=== PATIENT | female | born 1980 | race Caucasian/White ===

== ENCOUNTER 2024-07-07 10:34 | Observation (INO) | payer BC ==
--- NOTE | 2024-07-07 11:01 | ED ---
Nausea/Vomiting/Diarrhea HPI - General Chief complaint: Nausea/Vomiting/Diarrhea Stated complaint: Dizziness, Nausea Time Seen by Provider: 07/07/24 10:44 Source: patient Limitations: no limitations - History of Present Illness Initial comments: 43-year-old female presenting to the ER for evaluation of dizziness. Patient states on Thursday evening she may have consumed undercooked chicken. That night she started to experience nausea, vomiting and diarrhea. She denies any hematochezia, melena or hematic emesis. She states for the 4 days following she has been in bed as she has been feeling extremely dizzy. She states it feels as if the room is spinning which causes her to vomit. She does state this is worse with head motions. She denies any palpitations, chest discomfort, shortness of breath or abdominal pain. Patient denies a history of vertigo. Denies fevers or chills. Patient has tried taking hnxw-vpo-uycrzna DayQuil but has since stopped taking this medication as she has not been eating as well. Patient denies any other complaints at this time. - Related Data Home Medications Medication Instructions Recorded Confirmed No Known Home Medications 07/07/24 07/07/24 Allergies Allergy/AdvReac Type Severity Reaction Status Date / Time No Known Allergies Allergy Verified 07/07/24 13:17 Review of Systems ROS Statement: Those systems with pertinent positive or pertinent negative responses have been documented in the HPI. ROS Other: All systems not noted in ROS Statement are negative. Past Medical History Past Medical History: No Reported History History of Any Multi-Drug Resistant Organisms: None Reported Past Surgical History: Section Past Psychological History: No Psychological Hx Reported Smoking Status: Never smoker Past Alcohol Use History: Rare Past Drug Use History: None Reported General Exam Limitations: no limitations General appearance: alert, in no apparent distress, other (patient talking with eyes closed) Head exam: Present: atraumatic, normocephalic, normal inspection Eye exam: Present: normal appearance, PERRL, EOMI. Absent: scleral icterus, conjunctival injection, periorbital swelling Pupils: Present: normal accommodation ENT exam: Present: normal exam, normal oropharynx, mucous membranes moist, TM's normal bilaterally Neck exam: Present: normal inspection. Absent: tenderness, meningismus, lymphadenopathy Respiratory exam: Present: normal lung sounds bilaterally. Absent: respiratory distress, wheezes, rales, rhonchi, stridor Cardiovascular Exam: Present: regular rate, normal rhythm, normal heart sounds. Absent: systolic murmur, diastolic murmur, rubs, gallop, clicks GI/Abdominal exam: Present: soft, normal bowel sounds. Absent: distended, tenderness, guarding, rebound, rigid Extremities exam: Present: normal inspection, full ROM, normal capillary refill. Absent: tenderness, pedal edema, joint swelling, calf tenderness Neurological exam: Present: alert, oriented X3, CN II-XII intact Skin exam: Present: warm, dry, intact, normal color. Absent: rash Course Vital Signs 07/07/24 10:36 Temperature 97.8 F Pulse Rate 69 Respiratory 16 Rate Blood Pressure 150/78 O2 Sat by Pulse 98 Oximetry - Reevaluation(s) Reevaluation #1: 07/07/24 15:34 Case discussed with [facility], Dr. Ivy, for admission. Medical Decision Making - Medical Decision Making Was pt. sent in by a medical professional or institution (, PA, MOLD MACHINE OPERATOR, urgent care, hospital, or group home...) When possible be specific @ -No Did you speak to anyone other than the patient for history (EMS, parent, family, police, friend...)? What history was obtained from this source @ -No Did you review nursing and triage notes (agree or disagree)? Why? @ -I reviewed and agree with nursing and triage notes Were old charts reviewed (outside hosp., previous admission, EMS record, old EK G, old radiological studies, urgent care reports/EKG's, group home records)? Report findings @ -No old charts were reviewed Differential Diagnosis (chest pain, altered mental status, abdominal pain women, abdominal pain men, vaginal bleeding, weakness, fever, dyspnea, syncope, headache, dizziness, GI bleed, back pain, seizure, CVA, palpatations, mental health, musculoskeletal)? @ -Differential Dizziness:Benign paroxysmal positional Vertigo, Meniere's disease, otitis media, acoustic neuroma, vertebrobasilar insufficiency, cerebellar stroke, encephalitis, hypovolemic, arrhythmia, coronary artery syndrome, anemia, this is not meant to be an all-inclusive list EKG interpreted by me (3pts min.). @ -As above X-rays interpreted by me (1pt min.). @ -CXR interpreted me negative for focal consolidations, pneumothorax, pleural effusions. CT interpreted by me (1pt min.). @ -CT brain negative for acute intracranial process. U/S interpreted by me (1pt. min.). @ -None done What testing was considered but not performed or refused? (CT, X-rays, U/S, labs)? Why? @ -None What meds were considered but not given or refused? Why? @ -None Did you discuss the management of the patient with other professionals (professionals i.e. , PA, MOLD MACHINE OPERATOR, lab, RT, psych nurse, social science analyst, lecturer in marketing, teacher, nuclear officer, insurance case manager)? Give summary @ -Yes, [facility]. Was smoking cessation discussed for >3mins.? @ -No Was critical care preformed (if so, how long)? @ -No Were there social determinants of health that impacted care today? How? (Homelessness, low income, unemployed, alcoholism, drug addiction, transportation, low edu. Level, literacy, decrease access to med. care, long term, rehab)? @ -No Was there de-escalation of care discussed even if they declined (Discuss DNR or withdrawal of care, Hospice)? DNR status @ -No What co-morbidities impacted this encounter? (DM, HTN, Smoking, COPD, CAD, Cancer, CVA, ARF, Chemo, Hep., AIDS, mental health diagnosis, sleep apnea, morbid obesity)? @ -None Was patient admitted / discharged? Hospital course, mention meds given and route, prescriptions, significant lab abnormalities, going to OR and other pertinent info. @ -Admitted. 43-year-old female presented to the ER for evaluation of nausea, vomiting and dizziness x 5 days. History and physical exam completed. Vitals within normal limits. Upon examination, patient speaking to provider with eyes closed as she states she is too dizzy to open her eyes. There is no acute neurological findings on exam. GCS 15. Laboratory studies including CT brain will be obtained along with symptomatic treatment, patient is agreeable. CBC showing a leukocytosis of 11.2 with a left shift which is believed to be due to nausea and vomiting. CMP unremarkable. Troponin x 2 negative. EKG showing sinus rhythm no ST segment elevations/depression or T wave inversions. Urine analysis negative for evidence of infection. hCG negative. Viral swabs negati ve. CT brain negative for acute intracranial process. Chest x-ray negative. Patient received symptomatic control in the ER with IV fluids, Reglan and Antivert with minimal improvement of symptoms. Admission was considered at that time for neurology consult. Admission was discussed with [facility], Dr. Ivy. Neurology on consult. CTA brain ordered and pending at time of admission. Patient is agreeable for admission. Case discussed with ED attending, Dr. Robertson. Undiagnosed new problem with uncertain prognosis? @ -No Drug Therapy requiring intensive monitoring for toxicity (Heparin, Nitro, In sulin, Cardizem)? @ -No Were any procedures done? @ -No Diagnosis/symptom? @ -Dizziness Acute, or Chronic, or Acute on Chronic? @ -Acute Uncomplicated (without systemic symptoms) or Complicated (systemic symptoms)? @ -Complicated Side effects of treatment? @ -No Exacerbation, Progression, or Severe Exacerbation? @ -No Poses a threat to life or bodily function? How? (Chest pain, USA, ME, pneumonia, PE, COPD, DKA, ARF, appy, cholecystitis, CVA, Diverticulitis, Homicidal, Suicidal, threat to staff... and all critical care pts) @ -Yes, dizziness cannot rule out posterior stroke. - Lab Data Result diagrams: 07/07/24 10:59 07/07/24 10:59 Lab Results 07/07/24 07/07/24 07/07/24 Range/Units 10:58 10:59 10:59 WBC 11.2 H (3.8-10.6) k/uL RBC 4.44 (3.80-5.40) m/uL Hgb 13.9 (11.4-16.0) gm/dL Hct 40.6 (34.0-46.0) % MCV 91.5 (80.0-100.0) fL MCH 31.2 (25.0-35.0) pg MCHC 34.1 (31.0-37.0) g/dL RDW 12.8 (11.5-15.5) % Plt Count 328 (150-450) k/uL MPV 7.6 Neutrophils % 84 % Lymphocytes % 11 % Monocytes % 3 % Eosinophils % 1 % Basophils % 0 % Neutrophils # 9.4 H (1.3-7.7) k/uL Lymphocytes # 1.3 (1.0-4.8) k/uL Monocytes # 0.4 (0-1.0) k/uL Eosinophils # 0.1 (0-0.7) k/uL Basophils # 0.0 (0-0.2) k/uL PT (10.0-12.5) sec INR (<1.2) APTT (22.0-30.0) sec Sodium 142 (137-145) mmol/L Potassium 4.0 (3.5-5.1) mmol/L Chloride 106 (98-107) mmol/L Carbon Dioxide 25 (22-30) mmol/L Anion Gap 11 mmol/L BUN 13 (7-17) mg/dL Creatinine 0.70 (0.52-1.04) mg/dL Est GFR (CKD-EPI)AfAm >90 (>60 ml/min/1.73 sqM) Est GFR (CKD-EPI)NonAf >90 (>60 ml/min/1.73 sqM) Glucose 128 H (74-99) mg/dL Plasma Lactic Acid Fabrizio (0.7-2.0) mmol/L Calcium 9.9 (8.4-10.2) mg/dL Total Bilirubin 0.2 (0.2-1.3) mg/dL AST 23 (14-36) U/L ALT 32 (4-34) U/L Alkaline Phosphatase 72 (38-126) U/L Troponin I <0.012 (0.000-0.034) ng/mL Total Protein 7.7 (6.3-8.2) g/dL Albumin 4.8 (3.5-5.0) g/dL Urine Color Urine Appearance (Clear) Urine pH (5.0-8.0) Ur Specific [place] (1.001-1.035) Urine Protein (Negative) Urine Glucose (UA) (Negative) Urine Ketones (Negative) Urine Blood (Negative) Urine Nitrite (Negative) Urine Bilirubin (Negative) Urine Urobilinogen (<2.0) mg/dL Ur Leukocyte Esterase (Negative) Urine HCG, Qual (Not Detectd) Influenza Type A (PCR) (Not Detectd) Influenza Type B (PCR) (Not Detectd) RSV (PCR) (Not Detectd) SARS-CoV-2 (PCR) (Not Detectd) 07/07/24 07/07/2407/07/24 Range/Units 10:59 10:59 11:25 WBC (3.8-10.6) k/uL RBC (3.80-5.40) m/uL Hgb (11.4-16.0) gm/dL Hct (34.0-46.0) % MCV (80.0-100.0) fL MCH (25.0-35.0) pg MCHC (31.0-37.0) g/dL RDW (11.5-15.5) % Plt Count (150-450) k/uL MPV Neutrophils % % Lymphocytes % % Monocytes % % Eosinophils % % Basophils % % Neutrophils # (1.3-7.7) k/uL Lymphocytes # (1.0-4.8) k/uL Monocytes # (0-1.0) k/uL Eosinophils # (0-0.7) k/uL Basophils # (0-0.2) k/uL PT 11.1 (10.0-12.5) sec INR 1.0 (<1.2) APTT 24.0 (22.0-30.0) sec Sodium (137-145) mmol/L Potassium (3.5-5.1) mmol/L Chloride (98-107) mmol/L Carbon Dioxide (22-30) mmol/L Anion Gap mmol/L BUN (7-17) mg/dL Creatinine (0.52-1.04) mg/dL Est GFR (CKD-EPI)AfAm (>60 ml/min/1.73 sqM) Est GFR (CKD-EPI)NonAf (>60 ml/min/1.73 sqM) Glucose (74-99) mg/dL Plasma Lactic Acid Fabrizio 1.5 (0.7-2.0) mmol/L Calcium (8.4-10.2) mg/dL Total Bilirubin (0.2-1.3) mg/dL AST (14-36) U/L ALT (4-34) U/L Alkaline Phosphatase (38-126) U/L Troponin I (0.000-0.034) ng/mL Total Protein (6.3-8.2) g/dL Albumin (3.5-5.0) g/dL Urine Color Urine Appearance (Clear) Urine pH (5.0-8.0) Ur Specific [place] (1.001-1.035) Urine Protein (Negative) Urine Glucose (UA) (Negative) Urine Ketones (Negative) Urine Blood (Negative) Urine Nitrite (Negative) Urine Bilirubin (Negative) Urine Urobilinogen (<2.0) mg/dL Ur Leukocyte Esterase (Negative) Urine HCG, Qual (Not Detectd) Influenza Type A (PCR) Not Detected (Not Detectd) Influenza Type B (PCR) Not Detected (Not Detectd) RSV (PCR) Not Detected (Not Detectd) SARS-CoV-2 (PCR) Not Detected (Not Detectd) 07/07/24 07/07/24 07/07/24 Range/Units 13:01 13:01 14:06 WBC (3.8-10.6) k/uL RBC (3.80-5.40) m/uL Hgb (11.4-16.0) gm/dL Hct (34.0-46.0) % MCV (80.0-100.0) fL MCH (25.0-35.0) pg MCHC (31.0-37.0) g/dL RDW (11.5-15.5) % Plt Count (150-450) k/uL MPV Neutrophils % % Lymphocytes % % Monocytes % % Eosinophils % % Basophils % % Neutrophils # (1.3-7.7) k/uL Lymphocytes # (1.0-4.8) k/uL Monocytes # (0-1.0) k/uL Eosinophils # (0-0.7) k/uL Basophils # (0-0.2) k/uL PT (10.0-12.5) sec INR (<1.2) APTT (22.0-30.0) sec Sodium (137-145) mmol/L Potassium (3.5-5.1) mmol/L Chloride (98-107) mmol/L Carbon Dioxide (22-30) mmol/L Anion Gap mmol/L BUN (7-17) mg/dL Creatinine (0.52-1.04) mg/dL Est GFR (CKD-EPI)AfAm (>60 ml/min/1.73 sqM) Est GFR (CKD-EPI)NonAf (>60 ml/min/1.73 sqM) Glucose (74-99) mg/dL Plasma Lactic Acid Fabrizio (0.7-2.0) mmol/L Calcium (8.4-10.2) mg/dL Total Bilirubin (0.2-1.3) mg/dL AST (14-36) U/L ALT (4-34) U/L Alkaline Phosphatase (38-126) U/L Troponin I <0.012 (0.000-0.034) ng/mL Total Protein (6.3-8.2) g/dL Albumin (3.5-5.0) g/dL Urine Color Colorless Urine Appearance Clear (Clear) Urine pH 6.5 (5.0-8.0) Ur Specific [place] 1.023 (1.001-1.035) Urine Protein Negative (Negative) Urine Glucose (UA) Negative (Negative) Urine Ketones Negative (Negative) Urine Blood Negative (Negative) Urine Nitrite Negative (Negative) Urine Bilirubin Negative (Negative) Urine Urobilinogen <2.0 (<2.0) mg/dL Ur Leukocyte Esterase Negative (Negative) Urine HCG, Qual Not Detected (Not Detectd) Influenza Type A (PCR) (Not Detectd) Influenza Type B (PCR) (Not Detectd) RSV (PCR) (Not Detectd) SARS-CoV-2 (PCR) (Not Detectd) - EKG Data -: EKG Interpreted by Me EKG Comments: EKG taken 11: 08 showed a normal sinus rhythm. Early repolarization in lead III. No ST segment elevations or depressions. No T wave abnormalities. Normal axis. Ventricular rate 60, CA interval 135, QRS duration 93, QT/QTc 423/425. - Radiology Data Radiology results: report reviewed, image reviewed Disposition Clinical Impression: Dizziness Disposition: ADMITTED IP TO THIS HOSP Condition: Stable Referrals: Ritchie Mederos [Primary Care Provider] - 1-2 days Time of Disposition: 15:39
[2024-07-07] MEDS: SODIUM CHLORIDE 0.9% 1,000 ML IV STA (11:04)
[2024-07-07] MEDS: MECLIZINE 12.5 MG TAB PO STA (11:05)
[2024-07-07 11:09] LABS: Basophils % (A) 0 %; Eosinophils # (A) 0.1 k/uL (0-0.7); Eosinophils % (A) 1 %; HCT 40.6 % (34.0-46.0); HGB 13.9 gm/dL (11.4-16.0); Lymphocytes # (A) 1.3 k/uL (1.0-4.8); Lymphocytes % (A) 11 %; MCH 31.2 pg (25.0-35.0); MCHC 34.1 g/dL (31.0-37.0); MCV 91.5 fL (80.0-100.0); Mean Platelet Volume 7.6; Monocytes # (A) 0.4 k/uL (0-1.0); Monocytes % (A) 3 %; Neutrophils # (A) 9.4 k/uL (1.3-7.7); Neutrophils % (A) 84 %; Platelet Count 328 k/uL (150-450); RBC 4.44 m/uL (3.80-5.40); RDW 12.8 % (11.5-15.5); WBC 11.2 k/uL (3.8-10.6)
[2024-07-07 11:25] LABS: ALT 32 U/L (4-34); AST 23 U/L (14-36); African American GFR (CKD) >90 (>60 ml/min/1.73 sqM); Albumin 4.8 g/dL (3.5-5.0); Alkaline Phosphatase 72 U/L (38-126); Anion Gap 11 mmol/L; Blood Urea Nitrogen 13 mg/dL (7-17); Calcium 9.9 mg/dL (8.4-10.2); Carbon Dioxide 25 mmol/L (22-30); Chloride 106 mmol/L (98-107); Glucose 128 mg/dL (74-99); Non-African American GFR(CKD) >90 (>60 ml/min/1.73 sqM); Sodium 142 mmol/L (137-145); Total Bilirubin 0.2 mg/dL (0.2-1.3); Total Protein 7.7 g/dL (6.3-8.2)
--- NOTE | 2024-07-07 11:35 | CT ---
EXAMINATION TYPE: CT brain wo con DATE OF EXAM: 07/07/2024 COMPARISON: None CLINICAL INDICATION: Female, 43 years old with history of dizzines; PHH, c/o nausea, vomiting, diarrh ea and dizziness CT DLP: 1131.4 mGycm Automated exposure control for dose reduction was used. Findings: The ventricles, basal cisterns and sulci over the convexities are within normal limits and there is n o mass effect or shift of midline structures. No abnormal density is seen throughout the brain parenchyma and there is no acute intra or extra-axia l hemorrhage. The posterior fossa including the brainstem, fourth ventricle and cerebellar pontine angles appear no rmal. Intraorbital contents appear normal and symmetric. Visualized paranasal sinuses and mastoid air cells are well aerated. The calvarium is intact. IMPRESSION: No significant abnormality seen. There is no acute bleed or mass effect. [facility], , 07/07/2024 11:32 AM
--- NOTE | 2024-07-07 11:40 | XR ---
Chest, 2 view. HISTORY: Dizziness COMPARISON: None TECHNIQUE: PA and lateral views the chest are obtained. FINDINGS: The lungs are clear and there is no consolidative or interstitial opacity. There is no pleural effusion or pneumothorax. The heart, pulmonary vasculature, mediastinum and maria isabel appear normal. The osseous structures are intact. IMPRESSION: No significant abnormality seen. No acute cardiopulmonary disease. [facility], Workstation: [facility], 07/07/2024 11:38 AM
[2024-07-07 11:42] LABS: Prothrombin Time 11.1 sec (10.0-12.5)
[2024-07-07 13:10] LABS: Appearance,Urine Clear (Clear); Bilirubin,Urine Negative (Negative); Blood,Urine Negative (Negative); Color,Urine Colorless; Glucose,Urine (UA) Negative (Negative); Ketones,Urine Negative (Negative); Leukocyte Esterase,Urine Negative (Negative); Nitrite,Urine Negative (Negative); PH, Urine 6.5 (5.0-8.0); Protein,Urine Negative (Negative); Specific Gravity,Urine 1.023 (1.001-1.035); Urobilinogen,Urine <2.0 mg/dL (<2.0)
[2024-07-07] MEDS: SODIUM CHLORIDE 0.9% 500 ML 500 ML IV STA (13:14)
[2024-07-07] MEDS: METOCLOPRAMIDE 5 MG/ML 2 ML VIAL IVP STA (13:15)
[2024-07-07] MEDS ORDERED: ACETAMINOPHEN TAB 325 MG TAB PO PRN (15:32)
[2024-07-07] MEDS ORDERED: NALOXONE 0.4 MG/ML 1 ML VIAL IV PRN (15:32)
[2024-07-07] MEDS ORDERED: IBUPROFEN 400 MG TAB PO PRN (15:32)
[2024-07-07] MEDS: SODIUM CHLORIDE 0.9% 1,000 ML IV SCH (16:15)
--- NOTE | 2024-07-07 17:22 | CT ---
EXAMINATION TYPE: CT angio [place]OW [place] DATE OF EXAM: 07/07/2024 5:05 PM COMPARISON: None. CLINICAL INDICATION: Female, 43 years old with history of dizziness; TECHNIQUE: CT angio C[place] Axially acquired helical CT angiogram was obtained. Axial im ages are supplemented with 3D reconstructions which were post-processed at an independent workstation . NASCET criteria used. Contrast used:65cc mL of Isovue 370 with IV Contrast, none Oral contrast used: none CT DLP: 646.9 mGycm, Automated exposure control for dose reduction was used. FINDINGS: Vertebral arteries: The vertebral arteries are patent. Vertebral artery dominance: Codominant Basilar artery: The basilar artery is intact. The basilar artery bifurcation is normal. Internal Carotid arteries: The cervical, petrous, cavernous and supraclinoid segments are normal. TABITHA: Patent with no evidence of aneurysm. ACOM: Present without evidence of aneurysm. MCA: Patent with no evidence of aneurysm. SYSTEMS COORDINATOR: Patent with no evidence of aneurysm. origin of the left posterior cerebellar artery. PCOM: Hypoplastic right and origin left. Dural sinuses: Patent. IMPRESSION: No evidence of high-grade stenosis or intracranial aneurysm. [facility], , 07/07/2024 5:20 PM
[2024-07-08 01:55] VITALS: RESP 16
[2024-07-08 08:34] LABS: Basophils # (A) 0.03 X 10*3/uL (0.00-0.10); Basophils % (A) 0.4 %; Eosinophils # (A) 0.11 X 10*3/uL (0.04-0.35); Eosinophils % (A) 1.4 %; HCT 36.6 % (37.2-46.3); HGB 12.4 g/dL (12.0-15.0); Lymphocytes # (A) 2.32 X 10*3/uL (0.90-5.00); Lymphocytes % (A) 30.5 %; MCHC 33.9 g/dL (32.0-37.0); MCV 91.5 FL (80.0-97.0); Mean Platelet Volume 10.2 FL (9.5-12.2); Monocytes # (A) 0.58 X 10*3/uL (0.20-1.00); Monocytes % (A) 7.6 %; NRBC Per 100 WBC 0 X 10*3/uL (0.00-0.01); Neutrophils # (A) 4.55 X 10*3/uL (1.80-7.70); Neutrophils % (A) 59.8 %; Platelet Count 297 X 10*3/uL (140-440); RDW 12.4 % (11.5-14.5); WBC 7.61 X 10*3/uL (4.50-10.00)
[2024-07-08 08:38] LABS: ALT 23 U/L (8-44); AST 17 U/L (13-35); Albumin 3.9 g/dL (3.8-4.9); Alkaline Phosphatase 62 U/L (41-126); BUN/Creat Ratio 11.83 Ratio (12.00-20.00); Bilirubin, Conjugated <0.20 mg/dL (0.20-0.40); Bilirubin,Unconjugated >0.10 mg/dL (0.20-1.00); Blood Urea Nitrogen 7.1 mg/dL (9.0-27.0); Calcium 8.9 mg/dL (8.7-10.3); Carbon Dioxide 22.8 mmol/L (21.6-31.8); Chloride 110 mmol/L (96-109); Globulin 2.3 g/dL (1.6-3.3); Glucose 93 mg/dL (70-110); Potassium 3.8 mmol/L (3.5-5.5); Sodium 143 mmol/L (135-145); Total Bilirubin 0.3 mg/dL (0.3-1.2); Total Protein 6.2 g/dL (6.2-8.2)
[2024-07-08] MEDS: MECLIZINE 25 MG TAB PO PRN (12:46)
[2024-07-08 14:14] VITALS: BP 114/77; PULSE 69; TEMP 98.1
--- NOTE | 2024-07-08 14:33 | P.CNNES ---
History of Present Illness Consult date: 07/08/24 Requesting physician: Katarina Juarez Reason for Consult: Dizziness History of Present Illness: Patient is a 43-year-old right-handed female, otherwise healthy came to the hospital yesterday at 10:34 AM for new onset vertigo. Patient states her symptoms started Thursday night, (Thursday today) with vomiting, diarrhea, dizziness. She could not eat or drink and everything was spinning. For the next 4 or 5 days, she has not been a brain to eat or drink much, not taking food, drinking water "here and there". She laid down all the time, slept a lot. When she tried to move, her body felt hot. Yesterday could hardly walk and needed assistance to walk, or just crawled. When she was turning her head, was getting very dizzy. Denies any fever. Denies any recent upper respiratory infection. No prior history of dizziness ever in the past. Denies any focal numbness, tingling or weakness or any previous or current history of visual disturbance or optic neuritis. No family history of MS. Denies any abdominal pain. Since she arrived to the hospital, she has been started on fluids, was given meclizine and she is feeling much better. She was able to go to the bathroom. Vital signs on arrival blood pressure 150/78, which came down to 93/56, pulse rate 69 temperature 97.8. Blood test shows WBC 11.2, which came down to 7.6. Hemoglobin and platelets are normal. PT PTT and CMP are normal. Troponin negative. hCG negative. UA negative, influenza, RSV and coronavirus PCR negative. Chest x-ray showed no significant abnormality. CT head revealed no acute process. I personally reviewed CT head and agree with the findings. Visualized paranasal sinuses and external auditory canals are clear. EKG showed sinus rhythm. CTA of [place] showed no evidence of high-grade stenosis or intracranial aneurysm. Home medications: Does not take any medications. Denies any head trauma. Review of Systems All pertinent positive and negative review of systems mentioned in the HPI. Past Medical History Past Medical History: No Reported History History of Any Multi-Drug Resistant Organisms: None Reported Past Surgical History: Section Additional Past Surgical History / Comment(s): Lipoma removed from back in 2017 Past Anesthesia/Blood Transfusion Reactions: No Reported Reaction Past Psychological History: No Psychological Hx Reported Smoking Status: Former smoker Past Alcohol Use History: Rare Past Drug Use History: None Reported Medications and Allergies Home Medications Medication Instructions Recorded Confirmed Type Acetaminophen Tab [Tylenol] 650 mg PO Q6HR PRN tab 07/08/24 Rx Ibuprofen [Motrin] 400 mg PO Q6HR PRN tab 07/08/24 Rx Meclizine [Antivert] 12.5 mg PO TID PRN #30 tab 07/08/24 Rx Allergies Allergy/AdvReac Type Severity Reaction Status Date / Time No Known Allergies Allergy Verified 07/07/24 13:17 Physical Examination - Vital Signs Vital Signs: Vital Signs Temp Pulse Pulse Resp BP BP Pulse Ox 07/08/24 07:00 97.8 F 66 16 120/70 97 07/08/24 01:54 98.1 F 71 16 102/68 94 L 07/07/24 20:31 55 L 18 125/87 98 07/07/24 20:00 98.3 F 64 16 146/54 97 07/07/24 18:05 63 16 118/79 98 07/07/24 15:49 81 14 93/56 100 Intake and Output 07/07/24 07/08/24 07/08/24 22:59 06:59 14:59 Intake Total 236 Balance 236 Intake: Oral 236 Other: # Voids 2 2 Weight 77.111 kg Patient is a middle aged female, very pleasant, in no acute distress. Patient is alert awake oriented to time place and person. Speech and language functions are normal. Patient can name and repeat very well. No aphasia or dysarthria. Attention, concentration and fund of knowledge is adequate. On cranial nerve examination, pupils are equal, round and reacting to light, visual [place] are full on confrontation, with no neglect on double simultaneous stimulation. Extraocular muscles are intact. There is possible mild nystagmus looking to the right. Face is symmetric, tongue protrudes to the midline. Palatal elevation and sensation normal, hearing and shoulder shrug normal, facial sensation normal. On muscle strength testing, there is no pronator drift and the strength is normal in arms and legs distally and proximally. Deep tendon reflexes are symmetric 1+ and plantars downgoing. Sensory to touch is equal with no neglect on double simultaneous stimulation. Cerebellar function showed no ataxia for noqalc-vk-abeg testing. No dysdiadochokinesia. No ataxia for [id number] testing on either side. Tone and bulk of muscles normal. Gait deferred.. On general examination, there is no carotid bruit or murmur, S1-S2 audible. Chest is clear on consultation. Abdomen is soft nontender. No organomegaly, bowel sounds present. Peripheral pulses are present. No peripheral edema. Results - Laboratory Findings CBC and BMP: 07/08/24 03:43 07/08/24 03:43 Abnormal Lab Findings: Abnormal Labs 07/07/24 07/07/24 07/08/24 10:59 10:59 03:43 WBC 11.2 H RBC 4.00 L Hct 36.6 L Neutrophils # 9.4 H Chloride BUN BUN/Creatinine Ratio Glucose 128 H Unconjugated Bilirubin 07/08/24 03:43 WBC RBC Hct Neutrophils # Chloride 110 H BUN 7.1 L BUN/Creatinine Ratio 11.83 L Glucose Unconjugated Bilirubin >0.10 L Assessment and Plan Assessment: * Probable labyrinthitis. Symptoms have improved. Current examination nonfocal. CT head showed no acute process. Plan: * Meclizine 25 mg p.o. 3 times daily as needed for vertigo * Zofran 4 mg 3 times daily as needed vomiting nausea * Her symptoms already have improved with hydration and medications. Her examination is normal. No other workup indicated. Symptoms hopefully will resolve in the next day or 2. * Neurologically clear for discharge. * Thank you for the consult.
--- NOTE | 2024-07-12 11:57 | P.HPIM ---
History of Present Illness H&P Date: 07/08/24 This is a pleasant 43-year-old female who presented to the emergency department with onset of vertigo with dizziness nausea and vomiting being closely monitored with neurology consulted. Patient underwent CT of the brain which was negative and CTA of [place] showed no evidence of high-grade stenosis or aneurysm. Patient improving on meclizine and symptoms have resolved and neurology recommending outpatient follow-up and continuing current regimen. Will monitor patient and if tolerating diet and feeling better will discharge later today REVIEW OF SYSTEMS: CONSTITUTIONAL: No fever, no malaise, no fatigue. HEENT: No recent visual problems or hearing problems. Denied any sore throat. CARDIOVASCULAR: No chest pain, orthopnea, PND, no palpitations, no syncope. PULMONARY: No shortness of breath, no cough, no hemoptysis. GASTROINTESTINAL: No diarrhea, no nausea, no vomiting, no abdominal pain. NEUROLOGICAL: No headaches, no weakness, no numbness. HEMATOLOGICAL: Denies any bleeding or petechiae. GENITOURINARY: Denies any burning micturition, frequency, or urgency. MUSCULOSKELETAL/RHEUMATOLOGICAL: Denies any joint pain, swelling, or any muscle pain. ENDOCRINE: Denies any polyuria or polydipsia. The rest of the 14-point review of systems is negative. PHYSICAL EXAMINATION: GENERAL: The patient is alert and oriented x3, not in any acute distress. Well developed, well nourished. HEENT: Pupils are round and equally reacting to light. EOMI. No scleral icterus. No conjunctival pallor. Normocephalic, atraumatic. No pharyngeal erythema. No thyromegaly. CARDIOVASCULAR: S1 and S2 present. No murmurs, rubs, or gallops. PULMONARY: Chest is clear to auscultation, no wheezing or crackles. ABDOMEN: Soft, nontender, nondistended, normoactive bowel sounds. No palpable organomegaly. MUSCULOSKELETAL: No joint swelling or deformity. EXTREMITIES: No cyanosis, clubbing, or pedal edema. NEUROLOGICAL: Gross neurological examination did not reveal any focal deficits. SKIN: No rashes. Assessment: Nausea and vomiting secondary to vertigo, labyrinthitis Former smoker GI prophylaxis DVT prophylaxis Full code Plan: Patient was admitted for neurology evaluation and continued on meclizine and also given hydration reporting significant improvements in symptoms. Nausea and vomiting has resolved and patient is tolerating diet. Patient will continue on current medication regimen and have outpatient follow- up with neurology. Patient is medically stable and has been instructed to follow-up with primary care provider on discharge The impression and plan of care has been dictated by Heather Sin, Nurse Practitioner as directed. Dr. Juan MD I have performed a history and examination and MDM of this patient, discussed the same with the dictator, and agree with the dictator's assessment and plan as written ,documented as a scribe. Based on total visit time, I have performed more than 50% of the visit. Past Medical History Past Medical History: No Reported History History of Any Multi-Drug Resistant Organisms: None Reported Past Surgical History: Section Additional Past Surgical History / Comment(s): Lipoma removed from back in 2017 Past Anesthesia/Blood Transfusion Reactions: No Reported Reaction Past Psychological History: No Psychological Hx Reported Smoking Status: Former smoker Past Alcohol Use History: Rare Past Drug Use History: None Reported Medications and Allergies Home Medications Medication Instructions Recorded Confirmed Type Acetaminophen Tab [Tylenol] 650 mg PO Q6HR PRN tab 07/08/24 Rx Ibuprofen [Motrin] 400 mg PO Q6HR PRN tab 07/08/24 Rx Meclizine [Antivert] 12.5 mg PO TID PRN #30 tab 07/08/24 Rx Allergies Allergy/AdvReac Type Severity Reaction Status Date / Time No Known Allergies Allergy Verified 07/07/24 13:17 Physical Exam Vitals: Vital Signs Temp Pulse Pulse Resp BP BP Pulse Ox 07/08/24 07:00 97.8 F 66 16 120/70 97 07/08/24 01:54 98.1 F 71 16 102/68 94 L 07/07/24 20:31 55 L 18 125/87 98 07/07/24 20:00 98.3 F 64 16 146/54 97 07/07/24 18:05 63 16 118/79 98 07/07/24 15:49 81 14 93/56 100 Intake and Output 07/07/24 07/08/24 07/08/24 22:59 06:59 14:59 Intake Total 236 Balance 236 Intake: Oral 236 Other: # Voids 2 2 Weight 77.111 kg Results CBC & Chem 7: 07/08/24 03:43 07/08/24 03:43 Labs: Abnormal Lab Results - Last 24 Hours (Table) 07/08/24 07/08/24 Range/Units 03:43 03:43 RBC 4.00 L (4.10-5.20) X 10*6/uL Hct 36.6 L (37.2-46.3) % Chloride 110 H (96-109) mmol/L BUN 7.1 L (9.0-27.0) mg/dL BUN/Creatinine Ratio 11.83 L (12.00-20.00) Ratio Unconjugated Bilirubin >0.10 L (0.20-1.00) mg/dL
--- NOTE | 2024-07-12 11:59 | P.DS ---
Providers Date of admission: 07/07/24 15:55 Expected date of discharge: 07/08/24 Attending physician: Bert Ivy MD Consults: 07/07/24 15:32 Consult Physician Urgent Consulting Provider: Li Barillas Consult Reason/Comments: dizziness Do you want consulting provider notified?: Yes Primary care physician: Ritchie Mederos [facility] Course: Final diagnosis Nausea and vomiting secondary to vertigo, labyrinthitis Former smoker GI prophylaxis DVT prophylaxis Full code Discharge disposition Patient is being discharged in a stable condition with guarded prognosis to home . Patient will follow-up with Dr. Mederos in the outpatient setting upon discharge. Patient is to continue with meclizine and outpatient follow-up with neurology as scheduled. Total time taken is greater than 35 minutes. Hospital course This is a 43-year-old female who was recently admitted with nausea vomiting and dizziness with concerns of probable labwork Vitas per neurology. Patient continued on gentle hydration and meclizine having significant improvements in symptoms reports to feeling much improved and would like to go home. Per neurology patient to continue on meclizine and close outpatient follow-up. CT imaging is were negative for acute process. Patient has been cleared for discharge home. Please refer to other consultation notes for further Currently no reports of chest pain, shortness of breath, or palpitations. Patient is afebrile. No reports of nausea or vomiting and patient is tolerating diet. Patient will be discharged home today. Physical exam: Gen: This is a 43-year-old female who is awake, alert and oriented x 3, well- developed, well-nourished HEENT: Head is atraumatic, normocephalic. Pupils equal, round. Sclerae is anicteric. NECK: Supple. No JVD. No lymphadenopathy. No thyromegaly. LUNGS: Clear to auscultation. No wheezes or rhonchi. No intercostal retractions. HEART: Regular rate and rhythm. No murmur. ABDOMEN: Soft. Bowel sounds are present. No masses. No tenderness. EXTREMITIES: No pedal edema. No calf tenderness. NEUROLOGICAL: Patient is awake, alert and oriented x3. Cranial nerves 2 through 12 are grossly intact. Please refer to medication reconciliation sheet for a list of medications. The impression and plan of care has been dictated by Heather Sin, Nurse Practitioner as directed. Dr. Juan MD I have performed a history and examination and MDM of this patient, discussed the same with the dictator, and agree with the dictator's assessment and plan as written ,documented as a scribe. Based on total visit time, I have performed more than 50% of the visit. Patient Condition at Discharge: Stable Plan - Discharge Summary Discharge Rx Participant: No New Discharge Prescriptions: New Ibuprofen [Motrin] 400 mg PO Q6HR PRN tab PRN Reason: Mild Pain Or Fever > 100.5 Meclizine [Antivert] 12.5 mg PO TID PRN #30 tab PRN Reason: Vertigo Acetaminophen Tab [Tylenol] 650 mg PO Q6HR PRN tab PRN Reason: Mild Pain Or Fever > 100.5 Discharge Medication List Acetaminophen Tab [Tylenol] 650 mg PO Q6HR PRN tab 07/08/24 [Rx] Ibuprofen [Motrin] 400 mg PO Q6HR PRN tab 07/08/24 [Rx] Meclizine [Antivert] 12.5 mg PO TID PRN #30 tab 07/08/24 [Rx] Follow up Appointment(s)/Referral(s): Ricky Krueger MD [Medical Doctor] - 1 Week Ritchie Mederos [Primary Care Provider] - 1-2 days Activity/Diet/Wound Care/Special Instructions: Activity limited until follow-up Follow-up with neurology outpatient Follow-up with primary care provider on discharge Continue with Antivert 3 times daily for the next 2 days and then as needed if having dizziness Discharge Disposition: HOME SELF-CARE
== END 2024-07-08 14:23 | disposition home or self-care (01) ==
LOC: EC 10:34 → 6NMEDSUR 15:55
PROVIDERS: ADMIT Internal Medicine; ATTEND Internal Medicine
DX: R42 Dizziness and giddiness (principal); Z87.891 Personal history of nicotine dependence
CPT/HCPCS: 96361; 96374; 99285; 36415; 93005; 80053; 80048; 80076; 83605; 84484; 85025 ×2; 85610; 85730; 81003; 81025; 84702; 87636; 71046; 70496; 70450; G0378 ×2; J2765; Q9967